=== PATIENT | male | born 1950 | race Caucasian/White ===

== ENCOUNTER → 2017-01-09 10:57 | Outpatient (CLI) | payer MEDICARE ==
[~2017-01-09] VITALS: Ht 170.2 cm; Wt 94.5 kg
--- NOTE | ~2017-01-09 | HEMODYNAMI ---
PATIENT:SAY POPE MEDICAL RECORD: [id number] : 50 LOCATION:D.CAT ADMISSION DATE: 01/09/17 Generatedon:01/09/201713:48 Patient name: SAY POPE Patient #: [id number] SSN: : 1950 Date of study: 01/09/2017 Page: Of Hemodynamic Procedure Report Patient Data Patient Demographics Procedure consent was obtained First Name: SAY Gender: Male Last Name: NIKO : 1950 [facility] Initial: L Age: 66 year(s) Patient #: [id number] Race: Unknown Additional ID: [id number] Contact details Address: [address] [place] [address] State: [place] City: [place] Zip code: [address] Past Medical History Allergies Allergen Reaction Date Comments Reported Other allergy 01/09/2017 Morphine Admission Admission Data Admission Date: 01/09/2017 Admission Time: 10:57 Procedure Procedure Types Cath Procedure Diagnostic Procedure LHC LHC w/Coronaries PCI Procedure Coronary Stent Initial Miscellaneous Procedures Moderate Sedation up to 15 minutes Procedure Description Procedure Date Procedure Date: 01/09/2017 Procedure Start Time: 13:21 Procedure End Time: 13:45 Procedure Staff Name Function Walter Paulson MD Performing Physician Violeta Soto RT Scrub Izaiah Stevens RN Nurse Nara Barrios RT Monitor Procedure Data Cath Procedure Fluoroscopy Diagnostic fluoroscopy Total fluoroscopy Time: 6.7 time: 6.7 min min Diagnostic fluoroscopy Total fluoroscopy dose: dose: 1079 mGy 1079 mGy Contrast Material Contrast Material Type Amount (ml) Isovue 300 99 Entry Location Entry Primary Successful Side Size Upsize Upsize Entry Closure Almonte ccessful Closure Location (Fr) 1 (Fr) 2 (Fr) Remarks Device Remarks Radial Right 6 Fr Mechanical TR b artery Short Compression Femoral Right 6 Fr Exoseal artery Short Estimated blood loss: 10 ml Diagnostic catheters Device Type Used For End Catheter Placement Diagnostic Terumo 5Fr Procedure Hiram 110cm catheter Procedure Complications No complications Procedure Medications Medication Administration Route Dosage Oxygen NC 2 l/min Heparin Flush Bag added to field 2 bags (1000units/500ml NS) 0.9% NaCl I.V. 100 ml/hr Radial Cocktail added to field 1 syringe (Verapomil 2mg/Nitro 400mcg/Heparin 1500units) Fentanyl I.V. 50 mcg Versed I.V. 1 mg Fentanyl I.V. 50 mcg Versed I.V. 1 mg Radial Cocktail I.A. 1 syringe (Verapomil 2mg/Nitro 400mcg/Heparin 1500units) Heparin Bolus I.V. 4000 units Integrilin (Bolus I.V. 8.5 ml 2mg/ml) Fentanyl I.V. 50 mcg Integrilin (Bolus wasted 1.5 ml 2mg/ml) Plavix P.O. 600 mg Hemodynamics Rest Heart Rate: 60 (bpm) Pressure Samples Time Site Value (mmHg) Purpose Heart Use Rate(bpm) 13:24 LV 116/11,13 Snapshot 59 Gradients Valve Time Site Site Mean SEP/DFP Peak To Heart Use 1 2 (mmHg) (sec/min) Peak Rate (mmHg) (bpm) Aortic 13:25 LV AO 61 Snapshots Pre Cath Intra NCS Post Cath Vital Signs Time Heart Resp SPO2 NIBP (mmHg) Rhythm Pain Sedation Rate (ipm) (%) Status Level (bpm) 13:06:23 57 18 99 182/89(149) NSR 0 (11) 10(A) , No pain 13:10:49 59 18 94 165/85(135) NSR 0 (11) 10(A) , No pain 13:15:09 59 16 92 153/92(114) NSR 0 (11) 9(A) , No pain 13:19:28 49 17 90 154/83(131) NSR 0 (11) 9(A) , No pain 13:23:46 52 17 93 171/84(142) NSR 0 (11) 9(A) , No pain 13:28:12 60 17 93 143/85(101) NSR 0 (11) 9(A) , No pain 13:32:26 59 17 95 155/82(105) NSR 0 (11) 9(A) , No pain 13:36:40 61 18 95 136/86(108) NSR 0 (11) 9(A) , No pain 13:40:54 60 16 96 149/81(109) NSR 0 (11) 9(A) , No pain 13:45:38 57 17 95 144/84(127) NSR 0 (11) 9(A) , No pain Medications Time Medication Route Dose Verified Delivered Reason Note s Effectiveness by by 13:09:48 Oxygen NC 2 l/min Izaiah Izaiah Per physician Rodney Stevens RN RN 13:09:58 Heparin Flush added 2 bags Izaiah Waltony used for Bag to Rodney Stevens RN procedure (1000units/500ml field RN NS) 13:10:09 0.9% NaCl I.V. 100 Izaiah Izaiah Per physician ml/hr Rodney Stevens RN RN 13:10:18 Radial Cocktail added 1 Izaiah Izaiah used for (Verapomil to syringe Rodney Stevens RN procedure 2mg/Nitro field RN 400mcg/Heparin 1500units) 13:12:54 Fentanyl I.V. 50 mcg Izaiha Izaiah for sedation Rodney Stevens RN RN 13:13:00 Versed I.V. 1 mg Izaiah Izaiah for sedation Rodney Stevens RN RN 13:22:22 Fentanyl I.V. 50 mcg Izaiah Izaiah for sedation Rodney Stevens RN RN 13:22:27 Versed I.V. 1 mg Izaiah Izaiah for sedation Rodney Stevens RN RN 13:23:37 Radial Cocktail I.A. 1 Izaiah Walter for (Verapomil syringe Rodney Paulson vasodilation 2mg/Nitro RN MD 400mcg/Heparin 1500units) 13:34:01 Heparin Bolus I.V. 4000 Izaiah Waltony for units Rodney Stevens RN anticoagulation RN 13:34:13 Integrilin I.V. 8.5 ml Izaiah Izaiah for (Bolus 2mg/ml) Rodney Stevens RN antiplatelet RN therapy 13:35:53 Fentanyl I.V. 50 mcg Izaiah Izaiah for sedation Rodney Stevens RN RN 13:36:11 Integrilin wasted 1.5 ml Izaiah Izaiah for (Bolus 2mg/ml) Rodney Stevens RN antiplatelet RN therapy 13:46:39 Plavix P.O. 600 mg Izaiah Waltony for Rodney Stevens RN antiplatelet RN therapy Procedure Log Time Note 12:44:33 Izaiah Stevens RN sent for patient. Start room use. 12:44:34 Time tracking: Regular hours 12:44:38 Plan of Care:Hemodynamics will remain stable., Cardiac rhythm will remain stable., Comfort level will be maintained., Respiratory function will remain adequate., Patient/ family verbilizes understanding of procedure., Procedure tolerated without complication., Recovers from procedure without complications.. 12:57:22 Patient received from Pre/Post Procedure Room to [facility] 2 Alert and oriented. Tansferred to table in Supine position. 12:57:23 Warm blankets applied, and sveta hugger turned on for patient comfort. 12:57:24 Correct patient and procedure confirmed by team. 12:57:25 Signed procedure consent form obtained from patient. 12:57:25 ECG and BP/O2 sat monitors applied to patient. 12:57:26 Full Disclosure recording started 13:05:10 Vital chart was started 13:06:35 H&P Date Dictated: 01/04/2017 Within 30 days and on chart., H&P Addendum completed by physician on day of procedure. (MUST COMPLETE FOR ALL OUTPATIENTS). 13:06:40 Baseline sample Acquired. 13:06:48 Rhythm: sinus rhythm 13:07:02 Pre-procedure instructions explained to patient. 13:07:06 Family in waiting room. 13:07:14 Patient NPO since Midnight. 13:07:26 Patient allergic to Other allergyMorphine 13:07:28 Is the patient allergic to Iodine/contrast media? No. 13:08:15 Snore? Yes 13:08:18 Sleep apnea? Yes 13:08:33 Patient diabetic? Yes. 13:08:36 If diabetic: On Metformin? Yes 13:08:40 If on Metformin: Last Dose? 01/08/2017 13:09:07 Is patient on blood thinner?No 13:09:24 Dentures? No ? 13:09:33 IV patent on arrival in left forearm with 0.9% NaCl at O. 13:09:41 Lab results completed and on chart. 13:09:46 Right Radial & Right Groin area was prepped with chlora-prep and draped in sterile fashion 13:09:47 Alarms reviewed by R. N. 13:09:48 Oxygen 2 l/min NC was administered by Izaiah Stevens RN; Per physician; 13:09:48 Sharps counted by scrub and verified by R.N. 13:09:49 Physician paged 13:09:58 Heparin Flush Bag (1000units/500ml NS) 2 bags added to field was administered by Izaiah Stevens RN; used for procedure; ::09 0.9% NaCl 100 ml/hr I.V. was administered by Izaiah Stevens RN; Per physician; 13:10:18 Radial Cocktail (Verapomil 2mg/Nitro 400mcg/Heparin 1500units) 1 syringe added to field was administered by Izaiah Stevens RN; used for procedure; 13:12:10 Physician arrived 13:12:11 --------ALL STOP TIME OUT------ 13:12:13 Final Timeout: patient, procedure, and site verified with staff and physician. All members of the team are in agreement. 13:12:27 Right Radial & Right Groin site verified by team. 13:12:32 Sedation plan: IV Moderate Sedation Versed, Fentanyl 13:12:37 Physical assessment completed. ASA score P 2 - A patient with mild systemic disease as per Walter Paulson MD. 13:12:42 Use device set Radial Dx 13:12:54 Fentanyl 50 mcg I.V. was administered by Izaiah Stevens RN; for sedation; 13:13:00 Versed 1 mg I.V. was administered by Izaiah Stevens RN; for sedation; 13:18:26 Zero performed for pressure channel P1 13:19:38 Procedure started. 13:21:25 Acist Syringe opened to sterile field. 13:21:26 Medline Cath Pack opened to sterile field. 13:21:26 Bag Decanter opened to sterile field. 13:21:28 Terumo 6Fr Slender Glidesheath opened to sterile field. 13:21:28 St Yony 260cm J .035 wire opened to sterile field. 13:21:29 Acist Hand Control opened to sterile field. 13:21:30 Acist Manifold opened to sterile field. 13:21:49 Local anesthetic to right radial artery with Lidocaine 2% by Walter Paulson MD.INITIAL ACCESS ONLY 13:22:02 A 6 Fr Short sheath was inserted into the Right Radial artery 13:22:22 Fentanyl 50 mcg I.V. was administered by Izaiah Stevens RN; for sedation; 13:22:27 Versed 1 mg I.V. was administered by Izaiah Stevens RN; for sedation; 13:23:37 Radial Cocktail (Verapomil 2mg/Nitro 400mcg/Heparin 1500units) 1 syringe I.A. was administered by Walter Paulson MD; for vasodilation; 13:23:38 A Diagnostic Terumo 5Fr Hiram 110cm catheter was advanced over the wire and used for Procedure. 13:23:45 LV angiography performed. 13:25:02 EF : 50 % 13:26:25 LCA angiography performed. 13:28:06 RCA angiography performed. 13:29:56 Catheter removed. 13:30:02 Proceeding to intervention. 13:31:12 VeliQixCompak Inflation Kit opened to sterile field. 13:31:13 Medtronic Launcher 5Fr EBU 3.5 guide catheter opened to sterile field. 13:31:14 Cobian Dunnell 300cm 0.014 guide wire opened to sterile field. 13:31:47 6 Fr EBU ..5 guide catheter was inserted over the wire 13:32:49 Catheter removed. unable to cannulate vessel. 13:33:13 Medtronic Launcher 6Fr EBU 4.0 guide catheter opened to sterile field. 13:34:01 Heparin Bolus 4000 units I.V. was administered by Izaiah Stevens RN; for anticoagulation; 13:34:13 Integrilin (Bolus 2mg/ml) 8.5 ml I.V. was administered by Izaiah Stevens RN; for antiplatelet therapy; 13:34:15 Catheter removed. unable to cannulate vessel. 13:34:29 Terumo 6Fr Sixes Sheath opened to sterile field. 13:34:30 Tegaderm 4 x 4 opened to sterile field. 13:34:57 Local anesthetic to right femoral artery with Lidocaine 2% by Walter Paulson MD.ADDITIONAL ACCESS 13:35:15 A 6 Fr Short sheath was inserted into the Right Femoral artery 13:35:29 6 Fr EBU 4 guide catheter was inserted over the wire 13:35:53 Fentanyl 50 mcg I.V. was administered by Izaiah Stevens RN; for sedation; 13:36:11 Integrilin (Bolus 2mg/ml) 1.5 ml wasted was administered by Izaiah Stevens RN; for antiplatelet therapy; 13:40:28 Inflation Number: 1 A Medtronic Integrity 3.0 X 15 stent was prepped and advanced across the Undefined1. The stent was deployed at 14 BOB for 0:24 (min:sec). 13:41:05 Cordis 6Fr Exoseal opened to sterile field. 13:41:06 Terumo TR Band Standard opened to sterile field. 13:41:12 Wire removed. 13:41:13 Guide catheter removed. 13:41:46 Sheath removed intact; hemostasis achieved with Mechanical Compression to the Right Radial artery. 13:41:54 Sheath removed intact; hemostasis achieved with Exoseal to the Right Femoral artery. 13:41:57 Procedure ended.(Physican Out) 13:43:09 Fluoroscopy time 06.70 minutes. 13:43:17 Fluoroscopy dose: 1079 mGy 13:43:17 Flurop Dose total: 1079 13:43:24 Contrast amount:Isovue 300 99ml. 13:43:25 Sharps counted by scrub and verified by R.N. 13:43:34 TR band inflated with 10cc of air. 13:43:39 Insertion/operative site no bleeding no hematoma. 13:43:46 Post-op/insertion site Right Femoral artery dressed using a 4 x 4 and Tegaderm. 13:43:50 Post right femoral artery:stable 13:43:55 Post right radial artery:stable 13:43:58 Post Procedure Pulses reassessed and unchanged 13:44:04 Post-procedure physical assessment completed. ASA score P 2 - A patient with mild systemic disease as per Walter Paulson MD. 13:44:09 Post procedure rhythm: sinus rhythm 13:44:12 Estimated blood loss: 10 ml 13:44:18 Post procedure instruction explained to patient.Patient verbalizes understanding. 13:44:33 Procedure type changed to Cath procedure, Diagnostic procedure, LHC, LHC w/Coronaries, PCI procedure, Coronary Stent Initial, Miscellaneous Procedures, Moderate Sedation up to 15 minutes 13:44:36 Procedure and supply charges have been captured, reviewed, submitted and are correct. 13:45:38 Procedure Complication : No complications 13:45:43 Vital chart was stopped 13:45:45 See physician's report for complete and final results. 13:45:47 Report given to Pre/Post Procedure Room. 13:45:51 Patient transfered to Pre/Post Procedure Room with Stretcher. 13:45:53 Procedure ended. 13:45:53 Full Disclosure recording stopped 13:45:57 End room use (Document Last) 13:46:05 ACC-PCI Only Patient was given prescriptions, or instructed by Walter Paulson MD to start/continue the following medications upon discharge: Plavix 13:46:39 Plavix 600 mg P.O. was administered by Izaiah Stevens RN; for antiplatelet therapy; Intervention Summary Intervention Notes Time ActionType Lesion and Equipment Action# Pressure Duration Attributes Used 13:40:28 Place stent Undefined1 Medtronic 1 14 00:24 Integrity 3.0 X 15 stent Device Usage Item Name Manufacture Quantity Catalog Hospital Part Current Minimal Lot# / Number Charge Number Stock Stock Serial# Code Acist Acist 1 [id number] 049935 814610 769822 20 Syringe [employer] Inc Medline Cardinal 1 [id number] 808532 37322 908058 5 Cath Pack Health Bag Microtek 1 2002S 591573 67966 925193 5 [employer] Terumo 6Fr Terumo 1 [id number] 389384 334268 945789 [address] Yony St Yony 1 880276 209663 718741 841199 30 260cm J .035 wire Acist Hand Acist 1 66695 716200 037883 861997 5 Control Medical Systems Inc Acist Acist 1 83865 956101 050463 194951 5 Manifold Medical Systems Inc Diagnostic Terumo 1 40-9011 431481 797353 092545 5 Terumo 5Fr Hiram 110cm catheter Merit Merit 1 [id number] 476910 315660 551658 15 [facility] Inflation Kit Medtronic Medtronic 1 [id number] 274413 336879 361913 1 Launcher 5Fr EBU 3.5 guide catheter Cobian Cobian 1 [id number] 768621 971754 437958 1 Dunnell Vascular 300cm 0.014 guide wire Medtronic Medtronic 1 [id number] 701083 39726 542176 1 Launcher 6Fr EBU 4.0 guide catheter Terumo 6Fr Terumo 1 [id number] 094241 959458 320119 40 Sixes Sheath Tegaderm 4 3M 1 [id number] 136881 609600 467026 5 x 4 Medtronic Medtronic 1 [id number] 064700 980142 9 [id number] Integrity 3.0 X 15 stent Cordis 6Fr Cardinal 1 EX600 724612 708878 489776 10 NetProspex [place] [address] [id number] 252783 756101 671306 40 Band Standard Signature Audit [place] Stage Time Signature Unsigned Intra-Procedure 01/09/2017 Nara Barrios 1:48:44 PM RT(R) Signatures Monitor : Nara Barrios Signature : RT Date : Time : [place] [address] [place] [address]
[~2017-01-09 10:57] MED LIST: BAYER CHEWABLE81 MG PO; GLUCOPHAGE500 MG PO; HYTRIN5 MG PO; LIPITOR40 MG PO; PLAVIX75 MG PO; PRINIVIL20 MG PO
[2017-01-09 11:23] VITALS: BP 121/76; Ht 170.2 cm; Wt 94.5 kg
[2017-01-09 11:41] LABS: BASOPHILS 0.3 % (0-2); EOSINOPHILS 2.5 % (0-7); HEMATOCRIT 45.7 % (42.0-54.0); HEMOGLOBIN 16.4 g/dL (13.5-17.5); IMMATURE GRANULOCYTES 0.3 % (0-5); LYMPHOCYTES 22.6 % (15-50); MCH 32.6 pg (26.0-34.0); MCHC 35.9 g/dL (31.0-37.0); MCV 90.9 fL (80.0-100.0); MEAN PLATELET VOLUME 12.1 fL (7.4-10.4); MONOCYTES 12.4 % (2-11); NEUTROPHILS 61.9 % (40-80); PLATELET COUNT 177 10x3/uL (130-400); RBC 5.03 10x6/uL (4.20-6.10); RDW 12.1 % (11.5-14.5); WBC 6.7 10x3/uL (4.8-10.8)
[2017-01-09 11:48] LABS: CALC OSMOLALITY 286 mosm/kg (275-300); CALCIUM 8.6 mg/dL (8.5-10.1); CHLORIDE - SERUM 106 mmol/L (98-107); GLUCOSE 144 mg/dL (74-106); POTASSIUM - SERUM 4.2 mmol/L (3.5-5.1); SODIUM 141 mmol/L (136-145); UREA NITROGEN 22 mg/dL (7-18); eGFR NON AFRICAN AMERICAN 79 mL/min (90-120)
--- NOTE | 2017-01-09 14:30 | NUR ---
RESTING, TR BAND CDI, RIGHT GROIN-CDI, SOFT TO TOUCH, NO BLEEDING AT EITHER SITES, VSS
--- NOTE | 2017-01-09 15:00 | NUR ---
TR BAND CDI, RIGHT GROIN CDI, NO HEMATOMA OR BLEEDING AT SITE, SOFT TO TOUCH, RESTING, VSS
--- NOTE | 2017-01-10 13:25 | OP ---
PATIENT NAME: SAY POPE MEDICAL RECORD: [id number] :50 LOCATION:D.CAT ADMISSION DATE: SURGEON: ALLY CURRIE MD OPERATION DATE: 01/09/17 PROCEDURES: 1. Left heart catheterization. 2. Selective coronary angiography. PROCEDURE IN DETAIL: After informed consent was obtained and after detailed explanation of risks, benefits, as well as alternative therapies, the patient elected to proceed with angiogram. Right radial approach for the catheter. Right femoral approach for the intervention. The procedure was well-tolerated. The patient was returned to the castaneda after sheath was removed and TR band and ExoSeal device were placed respectively. FINDINGS: Left ventriculography was performed in 30 degree BARTHOLOMEW view, normal wall motion, normal systolic function. CORONARY ANATOMY: 1. The left main was free of disease. 2. The left anterior descending is free of disease. 3. Diagonal system of the circumflex has an 80% stenosis between two small obtuse marginals best seen in the caudal AP view. 4. Right coronary artery is the dominant artery, gives rise to the PDA, free of disease. IMPRESSION: Single vessel disease involving the circumflex. Intervention to this vessel momentarily. DESCRIPTION: After 6-Finnish sheath was placed in the right femoral artery, an XB 3.5 guiding catheter provided excellent guidance of the catheter forward followed by 300 centimeter Evangeline XT wire placed across tightly occluded circumflex to the distal portion of this vessel. The stent deployed was a 3.0 X 15 millimeter Integrity [id number] stent up to 14 atmospheres for 45 seconds. Final angiography shows excellent resolution of 80% stenosis with no significant residual stenosis. PANCHITO flow was 3 throughout the procedure. Sheath was closed with ExoSeal device on the femoral side and TR band on the radial side. Plavix was loaded in the lab. ALLY CURRIE MD at 1325 CC: [id number] DICTATION DATE: 01/09/17 1500 APPAREL PATTERN MAKER: DM 01/10/17 1150 DEP CLI 01/09/17 [facility] [address] [place] [address]
== END | disposition home or self-care (01) ==
LOC: D.CATH 10:57
PROVIDERS: Internal Medicine Interventional Cardiology
DX: I25.110 Atherosclerotic heart disease of native coronary artery with unstable angina pectoris (principal); Z01.812 Encounter for preprocedural laboratory examination

== ENCOUNTER 2017-06-26 10:55 | Outpatient (CLI) | payer MEDICARE ==
[~2017-06-26] VITALS: Ht 170.2 cm; Wt 94.5 kg
--- NOTE | ~2017-06-26 | HEMODYNAMI ---
PATIENT:SAY POPE MEDICAL RECORD: [id number] : 50 LOCATION:D.CAT ADMISSION DATE: 06/26/17 Generatedon:06/26/201713:23 Patient name: ASY POPE Patient #: [id number] SSN: : 1950 Date of study: 06/26/2017 Page: Of Hemodynamic Procedure Report Patient Data Patient Demographics Procedure consent was obtained First Name: SAY Gender: Male Last Name: NIKO : 1950 [facility] Initial: L Age: 66 year(s) Patient #: [id number] Race: Unknown Additional ID: [id number] Contact details [address]: [address] [place] [address] State: [place] City: [place] Zip code: [address] Past Medical History Allergies Allergen Reaction Date Comments Reported Other allergy 01/09/2017 Morphine Other allergy 06/26/2017 MORPHINE Admission Admission Data Admission Date: 06/26/2017 Admission Time: 10:55 Height (in.): 5.7 BSA: 0.34 (m2) Height (cm.): 14.48 BMI: 4501.03 (kg/m2) Weight (lbs.): 208 Weight (kg.): 94.35 Lab Results Lab Result Date: 06/26/2017 Lab Result Time: 0:00 Biochemistry Name Units Result Min Max BUN mg/dl 21 --(----)-* 7 18 Creatinine mg/dl 1 --(--*-)-- 0.6 1.3 CBC Name Units Result Min Max Hemoglobin g/dl 15.9 --(--*-)-- 13.5 17.5 Procedure Procedure Types Cath Procedure Diagnostic Procedure LHC [facility] w/Coronaries Miscellaneous Procedures Moderate Sedation up to 15 minutes Procedure Description Procedure Date Procedure Date: 06/26/2017 Procedure Start Time: 13:12 Procedure End Time: 13:22 Procedure Staff Name Function Walter Paulson MD Performing Physician Jena Black RT Monitor Violeta Soto RT Scrub Jj Lorigan RN Nurse Procedure Data Cath Procedure Fluoroscopy Diagnostic fluoroscopy Total fluoroscopy Time: 1.1 time: 1.1 min min Diagnostic fluoroscopy Total fluoroscopy dose: 467 dose: 467 mGy mGy Contrast Material Contrast Material Type Amount (ml) Isovue 300 64 Entry Location Entry Primary Successful Side Size Upsize Upsize Entry Closure Succes sful Closure Location (Fr) 1 (Fr) 2 (Fr) Remarks Device Remarks Femoral Right 5 Fr Exoseal artery Estimated blood loss: 5 ml Diagnostic catheters Device Type Used For End Catheter Placement MULTIPACK JL 4.0 5Fr Procedure catheter MULTIPACK 3DRC 5Fr Procedure catheter MULTIPACK Pigtail 5 Fr Procedure catheter Procedure Complications No complications Procedure Medications Medication Administration Route Dosage 0.9% NaCl I.V. 100 ml/hr Oxygen NC 2 l/min Heparin Flush Bag added to field 2 bags (1000units/500ml NS) Lidocaine 2% added to field 20 Benadryl I.V. 50 mg Versed I.V. 1 mg Fentanyl I.V. 50 mcg Versed I.V. 0.5 mg Fentanyl I.V. 25 mcg Hemodynamics Rest BSA: 0.34 (m2) HGB: 15.9 (g/dl) O2 Consumption: Estimated: 37.41 (ml/min) O2 Con sumption indexed: Estimated:110.03 (ml/min/m) Heart Rate: 53 (bpm) Pressure Samples Time Site Value (mmHg) Purpose Heart Use Rate(bpm) 13:18 LV 160/-4,19 Snapshot 61 13:18 AO 159/66(104) Pullback 59 13:18 LV 154/16,22 Pullback 59 Gradients Valve Time Site 1 Site 2 Mean SEP/DFP Peak To Heart Use (mmHg) (sec/min) Peak Rate (mmHg) (bpm) Aortic 13:18 LV AO 0 17 0 59 154/16,22 159/66(104) Calculations Valve P-P Mean Valve Index Valve Source Name Gradient Area Flow (cm2) Aortic 0 0 0 0 Snapshots Pre Cath Intra NCS Post Cath Vital Signs Time Heart Resp SPO2 etCO2 NIBP (mmHg) Rhythm Pain Sedation Rate (ipm) (%) (mmHg) Status Level (bpm) 12:52:31 58 24 98 0 167/89(132) NSR 0 (11) 10(A) , No pain 12:57:51 59 17 98 32.4 167/87(127) NSR 0 (11) 10(A) , No pain 13:02:37 59 16 94 31.6 165/93(121) NSR 0 (11) 10(A) , No pain 13:07:26 62 14 96 36.2 150/79(116) NSR 0 (11) 10(A) , No pain 13:12:07 59 13 95 33.9 145/86(113) NSR 0 (11) 9(A) , No pain 13:16:50 59 14 94 24.1 150/86(117) NSR 0 (11) 9(A) , No pain 13:21:49 59 14 96 24.8 Measuring NSR 0 (11) 9(A) , No pain 13:22:15 59 13 94 21 149/87(120) NSR 0 (11) 9(A) , No pain Medications Time Medication Route Dose Verified Delivered Reason Notes Effe ctiveness by by 12:58:57 0.9% NaCl I.V. 100 Jj Jj Per ml/hr Jo Osorio physician RN RN 12:59:10 Oxygen NC 2 Jj Jj Per l/min Lorraul Osorio physician RN RN 12:59:27 Heparin Flush added 2 Jj Jj used for Bag to bags Lorigan Lorigan procedure (1000units/500ml field RN RN NS) 12:59:40 Lidocaine 2% added 20ml Jj Jj for local to vial Lorigan Lorigan anesthetic field RN RN 12:59:56 Benadryl I.V. 50 mg Jj Jj Per Jo Osorio physician RN RN 13:08:12 Versed I.V. 1 mg Jj Jj for Lorigan Lorigan sedation RN RN 13:08:26 Fentanyl I.V. 50 Jj Jj for mcg Lorigan Lorigan sedation RN RN 13:13:23 Versed I.V. 0.5 Jj Jj for mg Lorigan Lorigan sedation RN RN 13:13:31 Fentanyl I.V. 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 12:33:06 H&P Date Dictated: 05/29/2017 Within 30 days and on chart., H&P Addendum completed by physician on day of procedure. (MUST COMPLETE FOR ALL OUTPATIENTS). 12:35:13 Violeta Counts RT(R) sent for patient. Start room use. 12:46:30 Patient received from Pre/Post Procedure Room to CCL 1 Alert and oriented. Tansferred to table in Supine position. 12:46:31 Warm blankets applied, and sveta hugger turned on for patient comfort. 12:46:31 Correct patient and procedure confirmed by team. 12:46:33 Signed procedure consent form obtained from patient. 12:46:34 ECG and BP/O2 sat monitors applied to patient. 12:50:51 Vital chart was started 12:52:58 Baseline sample Acquired. 12:53:01 Rhythm: sinus bradycardia 12:53:03 Full Disclosure recording started 12:53:05 Pre-procedure instructions explained to patient. 12:53:07 Pre-op teaching completed and patient verbalized understanding. 12:53:09 Family in patients room. 12:53:11 Patient NPO since Midnight. 12:53:22 Patient allergic to Other allergyMORPHINE 12:53:25 Is the patient allergic to Iodine/contrast media? No. 12:53:26 Is patient on blood thinner?No 12:53:27 Patient diabetic? Yes. 12:53:29 If diabetic: On Metformin? Yes 12:56:20 If on Metformin: Last Dose? 06/24/2017 12:56:25 Previous problem with sedation/anesthesia? No ? 12:56:28 Snore? Yes 12:56:31 Sleep apnea? No 12:56:32 Deviated septum? No 12:56:34 Opens mouth fully? Yes 12:56:36 Sticks out tongue? Yes 12:56:40 Airway obstruction? No ? 12:56:47 Dentures? Yes IN TIGHT 12:56:51 Pre procedure: right dorsailis pedis pulse 2+ Normal; easily identifiable; not easily obliterated 12:56:53 Patient pain scale 0/10 ?. 12:56:59 IV patent on arrival in right antecubital with 0.9% NaCl at [facility]. 12:58:41 Lab Result : BUN 21 mg/dl 12:58:41 Lab Result : Hemoglobin 15.9 g/dl 12:58:41 Lab Result : Creatinine 1 mg/dl 12:58:44 Lab results completed and on chart. 12:58:49 Right groin area was prepped with chlora-prep and draped in sterile fashion 12:58:51 Alarms reviewed by R. N. 12:58:52 Sharps counted by scrub and verified by R.N. 12:58:57 0.9% NaCl 100 ml/hr I.V. was administered by Jj Osorio RN; Per physician; 12:59:10 Oxygen 2 l/min NC was administered by Jj Osorio RN; Per physician; 12:59:27 Heparin Flush Bag (1000units/500ml NS) 2 bags added to field was administered by Jj Osorio RN; used for procedure; 12:59:40 Lidocaine 2% 20ml vial added to field was administered by Jj Osorio RN; for local anesthetic; 12:59:56 Benadryl 50 mg I.V. was administered by Jj Osorio RN; Per physician; 13:01:42 Physician paged 13:02:56 Zero performed for pressure channel P1 13:03:04 Zero performed for pressure channel P1 13:03:17 Zero performed for pressure channel P1 13:03:31 Zero performed for pressure channel P1 13:07:20 --------ALL STOP TIME OUT------ 13:07:21 Final Timeout: patient, procedure, and site verified with staff and physician. All members of the team are in agreement. 13:07:23 Right groin site verified by team. 13:07:26 Physical assessment completed. ASA score P 2 - A patient with mild systemic disease as per Walter Paulson MD. 13:07:30 Sedation plan: IV Moderate Sedation Medication:Versed, Fentanyl 13:08:12 Versed 1 mg I.V. was administered by Jj Osorio RN; for sedation; 13:08:17 Use device set Femoral Dx 13:08:18 ACIST Syringe (97031) opened to sterile field. 13:08:19 Bag Decanter (2002S) opened to sterile field. 13:08:20 ACIST Manifold (48031) opened to sterile field. 13:08:21 ACIST Hand Control (66556) opened to sterile field. 13:08:23 Tegaderm 4 x 4 (1626W) opened to sterile field. 13:08:24 Medline Cath Pack (RPUE69562) opened to sterile field. 13:08:25 SHEATH 5FR [place] (NIX224) opened to sterile field. 13:08:26 Fentanyl 50 mcg I.V. was administered by Jj Osorio RN; for sedation; 13:08:26 DIAGNOSTIC WIRE .035 260cm J wire (911290) opened to sterile field. 13:08:27 DIAGNOSTIC Multipack 5Fr catheter set (DN5965) opened to sterile field. 13:08:29 PERCUTANEOUS ENTRY 19GA needle opened to sterile field. 13:12:40 Procedure started. 13:12:43 Local anesthetic to right femoral artery with Lidocaine 2% by Walter Paulson MD.INITIAL ACCESS ONLY 13:12:46 A 5 Fr sheath was inserted into the Right Femoral artery 13:13:23 Versed 0.5 mg I.V. was administered by Jj Osorio RN; for sedation; 13:13:31 Fentanyl 25 mcg I.V. was administered by Jj Osorio RN; for sedation; 13:14:22 A MULTIPACK JL 4.0 5Fr catheter was advanced over the wire and used for Procedure. 13:14:54 LCA angiography performed. 13:15:49 Catheter removed. 13:15:59 A MULTIPACK 3DRC 5Fr catheter was advanced over the wire and used for Procedure. 13:17:01 RCA angiography performed. 13:17:04 Catheter removed. 13:17:14 A MULTIPACK Pigtail 5 Fr catheter was advanced over the wire and used for Procedure. 13:17:22 LV gram done using BARTHOLOMEW 13:17:26 Injector settings: Ml/sec: 10, Volume: 20, 13:18:38 EF : 55 % 13:18:39 LV hemodynamics recorded. 13:18:40 Catheter removed. 13:18:42 EXOSEAL 5Fr (EX500) opened to sterile field. 13:20:27 Sheath removed intact; hemostasis achieved with Exoseal to the Right Femoral artery. 13:20:29 Procedure ended.(Physican Out) 13:20:40 Fluoroscopy time 01.10 minutes. 13:20:43 Fluoroscopy dose: 467 mGy 13:20:43 Flurop Dose total: 467 13:20:48 Contrast amount:Isovue 300 64ml. 13:20:49 Sharps counted by scrub and verified by R.N. 13:20:51 Insertion/operative site no bleeding no hematoma. 13:20:55 Post-op/insertion site Right Femoral artery dressed using a 4 x 4 and Tegaderm. 13:21:00 Post right femoral artery:stable, soft, clean and dry 13:21:04 Post procedure: right dorsailis pedis pulse 2+ Normal; easily identifiable; not easily obliterated. 13:21:07 Post-procedure physical assessment completed. ASA score P 2 - A patient with mild systemic disease as per Walter Paulson MD. 13:21:10 Post procedure rhythm: unchanged. 13:21:12 Estimated blood loss: 5 ml 13:21:14 Post procedure instruction explained to patient.Patient verbalizes understanding. 13:21:14 Patient needs reinforcement of post procedure teaching. 13:21:39 Procedure type changed to Cath procedure, Diagnostic procedure, LHC, LHC w/Coronaries, Miscellaneous Procedures, Moderate Sedation up to 15 minutes 13:22:38 Procedure and supply charges have been captured, reviewed, submitted and are correct. 13:22:41 Procedure Complication : No complications 13:22:44 Vital chart was stopped 13:22:45 See physician's report for complete and final results. 13:22:47 Report given to Pre/Post Procedure Room. 13:22:50 Patient transfered to Pre/Post Procedure Room with Bed. 13:22:52 Procedure ended. 13:22:52 Full Disclosure recording stopped 13:22:55 End room use (Document Last) Device Usage Item Name Manufacture Quantity Catalog Hospital Part Current Minimal Lot# / Number Charge Number Stock Stock Serial# Code ACIST Acist 1 26526 879930 811149 [id number] 20 Syringe Medical (02636) Systems Inc Bag Decanter Microtek 1 [id number] 64240 647815 5 () Medical Inc. ACIST Acist 1 50812 097920 145264 222936 5 Manifold Medical (46603) Systems Inc ACIST Hand Acist 1 29210 202036 372613 336582 5 Control Medical (67478) Systems Inc Tegaderm 4 x 3M 1 1626W 999435 187238 559813 5 4 (1626W) Medline Cath Cardinal 1 [id number] 701322 61068 561510 5 Pack Health ([id number]) SHEATH 5FR Terumo 1 [id number] 461450 936301 580710 40 [place] (QBR816) DIAGNOSTIC St Yony 1 993388 017960 591736 728777 30 WIRE .035 260cm J wire (481179) DIAGNOSTIC Cardinal 1 CH0294 541253 63057 464325 30 Multipack Health 5Fr catheter set (EI0324) PERCUTANEOUS Cook Medical 1 H82864 827016 999570 5 ENTRY 19GA needle MULTIPACK JL Cardinal 1 [id number] 5 4.0 5Fr Health catheter MULTIPACK Cardinal 1 [id number] 5 3DRC 5Fr Health catheter MULTIPACK Cardinal 1 712757 5 Pigtail 5 Fr Health catheter EXOSEAL 5Fr Cardinal 1 EX500 863621 853784 085476 10 (EX500) Health Signature Audit [place] Stage Time Signature Unsigned Intra-Procedure 06/26/2017 Jena Black 1:23:20 PM RT(R) Signatures Monitor : Jena Black Signature : RT Date : Time : [place] [id number] [place] [place] [address]
--- NOTE | ~2017-06-26 | OP ---
PATIENT NAME: SAY POPE MEDICAL RECORD: [id number] :50 LOCATION:D.CAT ADMISSION DATE: SURGEON: ALLY CURRIE MD DATE OF OPERATION: 06/26/2017 PROCEDURE: Left heart catheterization, selective coronary angiography, right femoral artery approach. CATHETERS: A 5-Bahamian sheath, 5/4 left and right Lisbeth, 5/4 pig. The procedure was well tolerated and the patient returned to castaneda, sheath removed. ExoSeal device placed. FINDINGS: Left ventriculography in 30-degree BARTHOLOMEW view, normal wall motion, normal systolic function. CORONARY ANATOMY: LEFT MAIN: Left main is free of disease. LAD: Free of disease in the diagonal system. CIRCUMFLEX: Area of previous stenting is widely patent without evidence of restenosis. RIGHT CORONARY ARTERY: Dominant artery, gives rise to PDA, free of disease. IMPRESSION: Normal systolic function. Normal coronary anatomy. No evidence of restenosis. No progression of [place] disease. TRANSINT:[id number] Voice Confirmation ID: [id number] DOCUMENT ID: [id number] ALLY CURRIE MD at 1318 CC: [id number] DICTATION DATE: 06/26/17 1327 HEAT TREAT INSPECTOR: 06/26/17 1336 DEP CLI 06/26/17 [place] [id number] [place] [address]
[2017-06-26 11:35] VITALS: BP 152/63; Ht 170.2 cm; Wt 94.5 kg
[2017-06-26 11:56] LABS: BASOPHILS 0.2 % (0-2); EOSINOPHILS 2.9 % (0-7); HEMATOCRIT 44.3 % (42.0-54.0); HEMOGLOBIN 15.9 g/dL (13.5-17.5); IMMATURE GRANULOCYTES 0.2 % (0-5); LYMPHOCYTES 24.4 % (15-50); MCH 32.3 pg (26.0-34.0); MCHC 35.9 g/dL (31.0-37.0); MEAN PLATELET VOLUME 11.6 fL (7.4-10.4); MONOCYTES 8.4 % (2-11); NEUTROPHILS 63.9 % (40-80); PLATELET COUNT 185 10x3/uL (130-400); RBC 4.92 10x6/uL (4.20-6.10); WBC 6.6 10x3/uL (4.8-10.8)
[2017-06-26 12:03] LABS: CALC OSMOLALITY 283 mosm/kg (275-300); CALCIUM 8.8 mg/dL (8.5-10.1); CARBON DIOXIDE 25.4 mmol/L (21.0-32.0); CHLORIDE - SERUM 106 mmol/L (98-107); GLUCOSE 134 mg/dL (74-106); POTASSIUM - SERUM 4.5 mmol/L (3.5-5.1); SODIUM 140 mmol/L (136-145); UREA NITROGEN 21 mg/dL (7-18); eGFR NON AFRICAN AMERICAN 79 mL/min (90-120)
== END 2017-06-26 15:35 | disposition home or self-care (01) ==
LOC: D.CATH 10:55
PROVIDERS: Internal Medicine Interventional Cardiology
DX: I25.110 Atherosclerotic heart disease of native coronary artery with unstable angina pectoris (principal); R94.30 Abnormal result of cardiovascular function study, unspecified; I10 Essential (primary) hypertension; E78.5 Hyperlipidemia, unspecified; E11.9 Type 2 diabetes mellitus without complications; Z01.812 Encounter for preprocedural laboratory examination